=== PATIENT | male | born 1990 | race Caucasian/White ===

== ENCOUNTER 2018-01-29 23:31 | Emergency (ER) | payer MEDICAID ==
[~2018-01-29] VITALS: Ht 175.3 cm; Wt 39.5 kg
[2018-01-29 23:35] VITALS: Ht 175.3 cm; Wt 39.5 kg
[2018-01-30 00:29] LABS: ALBUMIN 3.9 g/dL (3.4-5.0); ALKALINE PHOSPHATASE 91 U/L (46-116); ALT/SGPT 70 U/L (16-63); AST/SGOT 43 U/L (15-37); CALCIUM 8.6 mg/dL (8.5-10.1); CARBON DIOXIDE 28.4 mmol/L (21-32); CHLORIDE SERUM 99 mmol/L (98-107); CREATININE SERUM 0.9 mg/dL (0.7-1.3); GFR1 > 60 mL/min; GLUCOSE SERUM 93 mg/dL (74-106); LIPASE 109 IU/L (73-393); POTASSIUM SERUM 3.8 mmol/L (3.5-5.1); SODIUM SERUM 135 mmol/L (136-145); TOTAL PROTEIN, SERUM 7.9 g/dL (6.4-8.2)
[2018-01-30 00:55] LABS: BASOPHIL % 0.6 % (0-2); PLATELET COUNT 164 x10^3mcL (130-400); RED CELL DISTRIBUTION WIDTH 12.6 % (11.5-14.5)
[2018-01-30 01:16] VITALS: BP 122/84
== END 2018-01-30 01:16 | disposition home or self-care (01) ==
LOC: ED 23:31
PROVIDERS: Emergency Medicine
DX: K52.9 Noninfective gastroenteritis and colitis, unspecified (principal)
CPT/HCPCS: J2405; J7030

== ENCOUNTER 2018-10-01 01:30 | Emergency (ER) | payer OTHER ==
[~2018-10-01] VITALS: Ht 175.3 cm; Wt 79.4 kg
[2018-10-01 02:49] LABS: AMPHETAMINE QUAL UR POSITIVE (See below)
[2018-10-01 03:07] VITALS: BP 153/85
== END 2018-10-01 03:20 | disposition home or self-care (01) ==
LOC: ED 01:30
DX: F15.10 Other stimulant abuse, uncomplicated (principal)

== ENCOUNTER 2019-06-28 08:51 | Inpatient (IN) | payer OTHER ==
[~2019-06-28] VITALS: Ht 172.7 cm; Wt 80.3 kg
[2019-06-28 02:48] VITALS: Ht 172.7 cm; Wt 80.3 kg
[2019-06-28 05:14] LABS: BASOPHIL % 0.2 % (0-2); PLATELET COUNT 257 x10^3mcL (130-400); RED CELL DISTRIBUTION WIDTH 12.8 % (11.5-14.5)
[2019-06-28 05:22] LABS: CALCIUM 8.3 mg/dL (8.5-10.1); CARBON DIOXIDE 24.9 mmol/L (21-32); CHLORIDE SERUM 105 mmol/L (98-107); CREATININE SERUM 0.8 mg/dL (0.7-1.3); GFR1 > 60 mL/min; GLUCOSE SERUM 89 mg/dL (74-106); POTASSIUM SERUM 3.7 mmol/L (3.5-5.1); SODIUM SERUM 139 mmol/L (136-145)
[2019-06-28 15:13] VITALS: BP 126/84
[2019-06-28 18:39] VITALS: BP 126/84
== END 2019-06-28 20:27 | disposition home or self-care (01) | DRG 320 ==
LOC: OR 08:51 → MU 13:38
PROVIDERS: Emergency Medicine; ADMIT Orthopaedic Surgery
PROC: 0QSD04Z Reposition Right Patella with Internal Fixation Device, Open Approach (ICD-10-PCS; principal; 2019-06-28 11:00)
DX: S82.041A Displaced comminuted fracture of right patella, initial encounter for closed fracture (principal); E11.22 Type 2 diabetes mellitus with diabetic chronic kidney disease; D64.9 Anemia, unspecified; I12.9 Hypertensive chronic kidney disease with stage 1 through stage 4 chronic kidney disease, or unspecified chronic kidney disease; F10.10 Alcohol abuse, uncomplicated; G40.909 Epilepsy, unspecified, not intractable, without status epilepticus; N18.9 Chronic kidney disease, unspecified; J45.909 Unspecified asthma, uncomplicated; K21.9 Gastro-esophageal reflux disease without esophagitis; E66.3 Overweight; W18.39XA Other fall on same level, initial encounter; Y93.89 Activity, other specified; Y92.89 Other specified places as the place of occurrence of the external cause; Y99.8 Other external cause status; Z68.26 Body mass index [BMI] 26.0-26.9, adult
CPT/HCPCS: G0378; J0690; J1170; J2250; J2270; J2405; J3010; J3480; J3490; Q0092

== ENCOUNTER 2019-12-02 16:22 | Emergency (ER) | payer OTHER, SELFPAY ==
[~2019-12-02] VITALS: Ht 175.3 cm; Wt 80.7 kg
[2019-12-02 16:23] VITALS: BP 131/90; Ht 175.3 cm; Wt 80.7 kg
== END 2019-12-02 17:15 | disposition home or self-care (01) ==
LOC: ED 16:22
DX: J03.90 Acute tonsillitis, unspecified (principal); Z20.828 Contact with and (suspected) exposure to other viral communicable diseases
CPT/HCPCS: U0003-CS